=== PATIENT | male | born 1950 | race Caucasian/White ===

== ENCOUNTER 2020-09-19 13:36 | Inpatient (IN) | payer MEDICARE ==
[~2020-09-19] VITALS: Ht 198.1 cm; Wt 131.5 kg
[2020-09-19 18:30] VITALS: BP 127/91
[2020-09-19] MEDS ORDERED: LORATADINE 10 MG TABLET PO PRN (19:30)
[2020-09-19] MEDS ORDERED: OxyCODONE HCL/ACETAMINOPHEN 5-325 MG TABLET PO PRN (19:30)
[2020-09-19 20:37] VITALS: BP 132/83
[2020-09-19] MEDS: HEPARIN SODIUM,PORCINE 5,000 UNITS/ML VIAL SQ SCH (20:38)
[2020-09-19] MEDS: LevETIRAcetam 500 MG TABLET PO SCH (20:39)
[2020-09-19] MEDS: SENNA 187 MG TABLET PO SCH (20:39)
[2020-09-19] MEDS: DOCUSATE SODIUM 250 MG CAPSULE PO SCH (20:39)
[2020-09-19] MEDS: METOPROLOL TARTRATE 25 MG TABLET PO SCH (20:40)
[2020-09-19] MEDS: MELATONIN 5 MG TABLET PO SCH (20:53)
[2020-09-19] MEDS: -LIDODERM PATCH NOTE- MISC SCH (20:53)
[2020-09-20] VITALS: BP 126/81
[2020-09-20 06:29] LABS: BASOPHILS % (AUTO) 0.6 % (0.0-2.0); EOSINOPHILS % (AUTO) 4.4 % (1.0-6.0); HEMATOCRIT 26.6 % (41-53); LYMPHOCYTES # (AUTO) 1.4 K/uL (1.0-4.8); LYMPHOCYTES % (AUTO) 22.7 % (22.0-44.0); MEAN CORPUSCULAR HEMOGLOBIN 30.1 pg (26.0-34.0); MEAN CORPUSCULAR HGB CONC 33.6 G/dL (31.0-37.0); MEAN CORPUSCULAR VOLUME 90 fL (80-100); MONOCYTES # (AUTO) 0.6 K/uL (0.1-1.0); MONOCYTES % (AUTO) 9.7 % (2.0-9.0); NEUTROPHILS # (AUTO) 3.9 K/uL (1.8-7.7); NEUTROPHILS % (AUTO) 62.6 % (40.0-70.0); PLATELET COUNT (AUTO) 323 K/uL (150-450); RED BLOOD CELL COUNT(AUTO) 2.97 MIL/uL (4.50-5.90); RED CELL DISTRIBUTION WIDTH 15.4 % (11.5-14.5)
[2020-09-20 06:44] LABS: ALANINE AMINOTRANSFERASE 29 U/L (12-78); ALBUMIN 2.2 g/dL (3.4-5.0); ALKALINE PHOSPHATASE 127 U/L (46-116); ANION GAP 6 mmol/L (8-16); ASPARTATE AMINOTRANSFERASE 31 U/L (15-37); BILIRUBIN,TOTAL 0.3 mg/dL (0.1-1.0); CALCIUM, TOTAL 8.2 mg/dL (8.8-10.5); CARBON DIOXIDE 28 mmol/L (22-29); CHLORIDE 105 mmol/L (98-107); CREATININE 0.83 mg/dL (0.60-1.30); GLOMERULAR FILTR. RATE CALC > 60 mL/min (>60); GLUCOSE,RANDOM 94 mg/dL (70-110); POTASSIUM 3.7 mmol/L (3.5-5.1); SODIUM SERUM 139 mmol/L (136-145); TOTAL PROTEIN, SERUM 5.1 g/dL (6.4-8.2); UREA NITROGEN, BLOOD 12 mg/dL (7-18)
[2020-09-20] MEDS: METOPROLOL TARTRATE 25 MG TABLET PO SCH ×2 (08:12→20:05)
[2020-09-20] MEDS: HEPARIN SODIUM,PORCINE 5,000 UNITS/ML VIAL SQ SCH ×3 (08:12→20:05)
[2020-09-20] MEDS: DOCUSATE SODIUM 250 MG CAPSULE PO SCH ×2 (08:12→20:05)
[2020-09-20] MEDS: LevETIRAcetam 500 MG TABLET PO SCH ×2 (08:12→20:05)
[2020-09-20] MEDS: LIDOCAINE 5% TRANSDERMAL PATCH TD SCH (08:28)
[2020-09-20 08:32] VITALS: BP 108/75
[2020-09-20] MEDS: ACETAMINOPHEN 325 MG TABLET PO PRN (11:33)
[2020-09-20 16:00] VITALS: BP 125/78
[2020-09-20] MEDS: CALCIUM CARBONATE 500 MG CHEWABLE TABLET CHEW PRN (16:59)
[2020-09-20] MEDS: OxyCODONE HCL 5 MG IR TABLET PO PRN (17:01)
[2020-09-20] MEDS: MELATONIN 5 MG TABLET PO SCH (20:05)
[2020-09-20] MEDS: SENNA 187 MG TABLET PO SCH (20:05)
[2020-09-20 20:06] VITALS: BP 114/64
[2020-09-20] MEDS: -LIDODERM PATCH NOTE- MISC SCH (21:00)
[2020-09-21] VITALS: BP 104/65
[2020-09-21 07:38] VITALS: BP 109/64
[2020-09-21] MEDS: ACETAMINOPHEN 325 MG TABLET PO PRN (07:38)
[2020-09-21 08:00] VITALS: BP 109/64
[2020-09-21] MEDS ORDERED: MAGNESIUM HYDROXIDE SUSPENSION 30 ML UDCUP PO PRN (08:00)
[2020-09-21] MEDS: POLYETHYLENE GLYCOL 3350 17 GM PACKET PO SCH (08:31)
[2020-09-21] MEDS: LevETIRAcetam 500 MG TABLET PO SCH ×2 (08:32→19:43)
[2020-09-21] MEDS: DOCUSATE SODIUM 250 MG CAPSULE PO SCH ×2 (08:32→19:43)
[2020-09-21] MEDS: HEPARIN SODIUM,PORCINE 5,000 UNITS/ML VIAL SQ SCH ×3 (08:33→19:46)
[2020-09-21] MEDS: METOPROLOL TARTRATE 25 MG TABLET PO SCH ×2 (08:34→19:43)
[2020-09-21] MEDS: LIDOCAINE 5% TRANSDERMAL PATCH TD SCH (09:00)
[2020-09-21] MEDS: OxyCODONE HCL 5 MG IR TABLET PO PRN ×2 (16:03→23:38)
[2020-09-21 16:12] VITALS: BP 109/77
[2020-09-21] MEDS: -LIDODERM PATCH NOTE- MISC SCH (19:43)
[2020-09-21] MEDS: SENNA 187 MG TABLET PO SCH (19:43)
[2020-09-21] MEDS: MELATONIN 5 MG TABLET PO SCH (19:43)
[2020-09-21] MEDS: CALCIUM CARBONATE 500 MG CHEWABLE TABLET CHEW PRN (19:43)
[2020-09-21 23:38] VITALS: BP 113/65
[2020-09-22 07:05] VITALS: BP 112/64
[2020-09-22] MEDS: OxyCODONE HCL 5 MG IR TABLET PO PRN ×2 (07:10→17:28)
[2020-09-22] MEDS: LevETIRAcetam 500 MG TABLET PO SCH ×2 (07:44→21:04)
[2020-09-22] MEDS: DOCUSATE SODIUM 250 MG CAPSULE PO SCH ×2 (07:44→21:04)
[2020-09-22] MEDS: POLYETHYLENE GLYCOL 3350 17 GM PACKET PO SCH (07:44)
[2020-09-22] MEDS: METOPROLOL TARTRATE 25 MG TABLET PO SCH ×2 (07:45→21:04)
[2020-09-22] MEDS: HEPARIN SODIUM,PORCINE 5,000 UNITS/ML VIAL SQ SCH ×3 (07:45→21:04)
[2020-09-22 08:05] VITALS: BP 120/72
[2020-09-22] MEDS: LIDOCAINE 5% TRANSDERMAL PATCH TD SCH (09:00)
[2020-09-22] MEDS: CALCIUM CARBONATE 500 MG CHEWABLE TABLET CHEW PRN (14:45)
[2020-09-22 16:00] VITALS: BP 121/74
[2020-09-22 20:59] VITALS: BP 113/66
[2020-09-22] MEDS: -LIDODERM PATCH NOTE- MISC SCH (21:00)
[2020-09-22] MEDS: SENNA 187 MG TABLET PO SCH (21:04)
[2020-09-22] MEDS: MELATONIN 5 MG TABLET PO SCH (21:04)
[2020-09-23 01:19] VITALS: BP 103/49
[2020-09-23] MEDS: OxyCODONE HCL 5 MG IR TABLET PO PRN (07:36)
[2020-09-23] MEDS: DOCUSATE SODIUM 250 MG CAPSULE PO SCH ×2 (08:28→20:36)
[2020-09-23] MEDS: LevETIRAcetam 500 MG TABLET PO SCH ×2 (08:29→20:37)
[2020-09-23] MEDS: PSYLLIUM SEED ORANGE SF 5.8 GM/PACKET PO SCH (08:29)
[2020-09-23] MEDS: HEPARIN SODIUM,PORCINE 5,000 UNITS/ML VIAL SQ SCH ×3 (08:29→20:37)
[2020-09-23] MEDS: POLYETHYLENE GLYCOL 3350 17 GM PACKET PO SCH (08:29)
[2020-09-23] MEDS: MULTIVITAMINS WITH MINERALS, THERAPEUTIC TABLET PO SCH (08:29)
[2020-09-23] MEDS: LIDOCAINE 5% TRANSDERMAL PATCH TD SCH (08:30)
[2020-09-23 08:35] VITALS: BP 108/57
[2020-09-23] MEDS: METOPROLOL TARTRATE 25 MG TABLET PO SCH ×2 (09:00→20:39)
[2020-09-23] MEDS: ACETAMINOPHEN 325 MG TABLET PO PRN (11:45)
[2020-09-23 16:00] VITALS: BP 116/66
[2020-09-23 20:09] VITALS: BP 125/59
[2020-09-23] MEDS: MELATONIN 5 MG TABLET PO SCH (20:37)
[2020-09-23] MEDS: SENNA 187 MG TABLET PO SCH (20:37)
[2020-09-24] VITALS: BP 116/67
[2020-09-24] MEDS: PSYLLIUM SEED ORANGE SF 5.8 GM/PACKET PO SCH (07:59)
[2020-09-24] MEDS: DOCUSATE SODIUM 250 MG CAPSULE PO SCH ×2 (07:59→20:13)
[2020-09-24] MEDS: POLYETHYLENE GLYCOL 3350 17 GM PACKET PO SCH (07:59)
[2020-09-24] MEDS: METOPROLOL TARTRATE 25 MG TABLET PO SCH ×2 (08:00→20:14)
[2020-09-24] MEDS: HEPARIN SODIUM,PORCINE 5,000 UNITS/ML VIAL SQ SCH ×3 (08:00→20:13)
[2020-09-24] MEDS: MULTIVITAMINS WITH MINERALS, THERAPEUTIC TABLET PO SCH (08:00)
[2020-09-24] MEDS: LevETIRAcetam 500 MG TABLET PO SCH ×2 (08:01→20:14)
[2020-09-24 12:00] VITALS: BP 105/64
[2020-09-24 17:00] VITALS: BP 111/59
[2020-09-24 20:05] VITALS: BP 129/67
[2020-09-24] MEDS: MELATONIN 5 MG TABLET PO SCH (20:13)
[2020-09-24] MEDS: SENNA 187 MG TABLET PO SCH (20:14)
[2020-09-25 00:30] VITALS: BP 106/58
[2020-09-25 08:00] VITALS: BP 123/74
[2020-09-25] MEDS: HEPARIN SODIUM,PORCINE 5,000 UNITS/ML VIAL SQ SCH ×3 (08:03→20:09)
[2020-09-25] MEDS: DOCUSATE SODIUM 250 MG CAPSULE PO SCH ×2 (08:03→20:09)
[2020-09-25] MEDS: MULTIVITAMINS WITH MINERALS, THERAPEUTIC TABLET PO SCH (08:03)
[2020-09-25] MEDS: METOPROLOL TARTRATE 25 MG TABLET PO SCH ×2 (08:04→20:10)
[2020-09-25] MEDS: PSYLLIUM SEED ORANGE SF 5.8 GM/PACKET PO SCH (08:04)
[2020-09-25] MEDS: POLYETHYLENE GLYCOL 3350 17 GM PACKET PO SCH (08:04)
[2020-09-25] MEDS: LevETIRAcetam 500 MG TABLET PO SCH ×2 (08:04→20:09)
[2020-09-25 16:00] VITALS: BP 104/72
[2020-09-25] MEDS: ACETAMINOPHEN 325 MG TABLET PO PRN (17:42)
[2020-09-25] MEDS: MELATONIN 5 MG TABLET PO SCH (20:09)
[2020-09-25 20:10] VITALS: BP 102/70
[2020-09-25] MEDS: SENNA 187 MG TABLET PO SCH (20:10)
[2020-09-26] VITALS: BP 105/64
[2020-09-26] MEDS: POLYETHYLENE GLYCOL 3350 17 GM PACKET PO SCH (08:01)
[2020-09-26] MEDS: PSYLLIUM SEED ORANGE SF 5.8 GM/PACKET PO SCH (08:01)
[2020-09-26] MEDS: METOPROLOL TARTRATE 25 MG TABLET PO SCH ×2 (08:02→20:12)
[2020-09-26] MEDS: HEPARIN SODIUM,PORCINE 5,000 UNITS/ML VIAL SQ SCH ×3 (08:02→20:13)
[2020-09-26] MEDS: DOCUSATE SODIUM 250 MG CAPSULE PO SCH ×2 (08:02→20:12)
[2020-09-26] MEDS: LevETIRAcetam 500 MG TABLET PO SCH ×2 (08:03→20:12)
[2020-09-26] MEDS: MULTIVITAMINS WITH MINERALS, THERAPEUTIC TABLET PO SCH (08:03)
[2020-09-26 09:18] VITALS: BP 115/68
[2020-09-26] MEDS: ACETAMINOPHEN 325 MG TABLET PO PRN (11:30)
[2020-09-26 16:12] VITALS: BP 107/76
[2020-09-26 20:11] VITALS: BP 101/62
[2020-09-26] MEDS: MELATONIN 5 MG TABLET PO SCH (20:12)
[2020-09-26] MEDS: SENNA 187 MG TABLET PO SCH (20:12)
[2020-09-27 00:24] VITALS: BP 98/63
[2020-09-27] MEDS: PSYLLIUM SEED ORANGE SF 5.8 GM/PACKET PO SCH (08:04)
[2020-09-27] MEDS: POLYETHYLENE GLYCOL 3350 17 GM PACKET PO SCH (08:04)
[2020-09-27] MEDS: LevETIRAcetam 500 MG TABLET PO SCH ×2 (08:05→20:48)
[2020-09-27] MEDS: DOCUSATE SODIUM 250 MG CAPSULE PO SCH ×2 (08:05→20:48)
[2020-09-27] MEDS: HEPARIN SODIUM,PORCINE 5,000 UNITS/ML VIAL SQ SCH ×3 (08:06→20:48)
[2020-09-27] MEDS: METOPROLOL TARTRATE 25 MG TABLET PO SCH ×2 (08:06→20:48)
[2020-09-27] MEDS: MULTIVITAMINS WITH MINERALS, THERAPEUTIC TABLET PO SCH (08:07)
[2020-09-27 08:29] VITALS: BP 103/65
[2020-09-27] MEDS: ACETAMINOPHEN 325 MG TABLET PO PRN (09:36)
[2020-09-27 16:51] VITALS: BP 137/87
[2020-09-27] MEDS: SENNA 187 MG TABLET PO SCH (20:48)
[2020-09-27] MEDS: MELATONIN 5 MG TABLET PO SCH (20:48)
[2020-09-27 21:00] VITALS: BP 114/59
[2020-09-28] VITALS: BP 101/62
[2020-09-28] MEDS: ACETAMINOPHEN 325 MG TABLET PO PRN ×2 (01:13→19:58)
[2020-09-28 07:25] LABS: EOSINOPHILS % (AUTO) 6.3 % (1.0-6.0); HEMATOCRIT 31.2 % (41-53); HEMOGLOBIN 10.2 g/dL (13.5-17.5); LYMPHOCYTES % (AUTO) 29.4 % (22.0-44.0); MEAN CORPUSCULAR HEMOGLOBIN 29.8 pg (26.0-34.0); MEAN CORPUSCULAR HGB CONC 32.7 G/dL (31.0-37.0); MEAN CORPUSCULAR VOLUME 91 fL (80-100); MONOCYTES # (AUTO) 0.8 K/uL (0.1-1.0); MONOCYTES % (AUTO) 11.9 % (2.0-9.0); NEUTROPHILS # (AUTO) 3.5 K/uL (1.8-7.7); NEUTROPHILS % (AUTO) 51.4 % (40.0-70.0); PLATELET COUNT (AUTO) 326 K/uL (150-450); RED BLOOD CELL COUNT(AUTO) 3.43 MIL/uL (4.50-5.90)
[2020-09-28 07:40] LABS: ALBUMIN 2.9 g/dL (3.4-5.0); BILIRUBIN,TOTAL 0.4 mg/dL (0.1-1.0); CALCIUM, TOTAL 8.8 mg/dL (8.8-10.5); CREATININE 1.22 mg/dL (0.60-1.30); POTASSIUM 4.2 mmol/L (3.5-5.1); TOTAL PROTEIN, SERUM 6.3 g/dL (6.4-8.2)
[2020-09-28 08:04] VITALS: BP 113/72
[2020-09-28] MEDS: POLYETHYLENE GLYCOL 3350 17 GM PACKET PO SCH (08:33)
[2020-09-28] MEDS: PSYLLIUM SEED ORANGE SF 5.8 GM/PACKET PO SCH (08:33)
[2020-09-28] MEDS: LevETIRAcetam 500 MG TABLET PO SCH ×2 (08:34→19:59)
[2020-09-28] MEDS: MULTIVITAMINS WITH MINERALS, THERAPEUTIC TABLET PO SCH (08:34)
[2020-09-28] MEDS: DOCUSATE SODIUM 250 MG CAPSULE PO SCH ×2 (08:34→19:58)
[2020-09-28] MEDS: METOPROLOL TARTRATE 25 MG TABLET PO SCH ×2 (08:35→19:59)
[2020-09-28] MEDS: HEPARIN SODIUM,PORCINE 5,000 UNITS/ML VIAL SQ SCH ×3 (08:35→19:59)
[2020-09-28] MEDS: CALCIUM CARBONATE 500 MG CHEWABLE TABLET CHEW PRN (10:21)
[2020-09-28] MEDS: OMEPRAZOLE 20 MG CAPSULE PO SCH ×2 (15:34→19:59)
[2020-09-28 15:42] VITALS: BP 105/87
[2020-09-28 19:57] VITALS: BP 122/67
[2020-09-28] MEDS: SENNA 187 MG TABLET PO SCH (19:58)
[2020-09-28] MEDS: MELATONIN 5 MG TABLET PO SCH (19:59)
[2020-09-29] VITALS: BP 85/59
[2020-09-29 03:00] VITALS: BP 90/51
[2020-09-29 06:00] VITALS: BP 115/72
[2020-09-29 08:05] VITALS: BP 104/73
[2020-09-29] MEDS: HEPARIN SODIUM,PORCINE 5,000 UNITS/ML VIAL SQ SCH ×3 (08:14→20:31)
[2020-09-29] MEDS: PSYLLIUM SEED ORANGE SF 5.8 GM/PACKET PO SCH (08:17)
[2020-09-29] MEDS: POLYETHYLENE GLYCOL 3350 17 GM PACKET PO SCH (08:18)
[2020-09-29] MEDS: DOCUSATE SODIUM 250 MG CAPSULE PO SCH ×2 (08:18→20:32)
[2020-09-29] MEDS: METOPROLOL TARTRATE 25 MG TABLET PO SCH ×2 (08:18→20:32)
[2020-09-29] MEDS: MULTIVITAMINS WITH MINERALS, THERAPEUTIC TABLET PO SCH (08:18)
[2020-09-29] MEDS: OMEPRAZOLE 20 MG CAPSULE PO SCH ×2 (08:18→20:32)
[2020-09-29] MEDS: LevETIRAcetam 500 MG TABLET PO SCH ×2 (08:19→20:31)
[2020-09-29 16:25] VITALS: BP 113/70
[2020-09-29] MEDS: SENNA 187 MG TABLET PO SCH (20:32)
[2020-09-29] MEDS: MELATONIN 5 MG TABLET PO SCH (20:38)
[2020-09-29] MEDS: ACETAMINOPHEN 325 MG TABLET PO PRN (20:48)
[2020-09-30 01:18] VITALS: BP 94/61
[2020-09-30 08:01] VITALS: BP 108/72
[2020-09-30] MEDS: MULTIVITAMINS WITH MINERALS, THERAPEUTIC TABLET PO SCH (09:41)
[2020-09-30] MEDS: PSYLLIUM SEED ORANGE SF 5.8 GM/PACKET PO SCH (09:41)
[2020-09-30] MEDS: POLYETHYLENE GLYCOL 3350 17 GM PACKET PO SCH (09:41)
[2020-09-30] MEDS: OMEPRAZOLE 20 MG CAPSULE PO SCH ×2 (09:41→20:20)
[2020-09-30] MEDS: DOCUSATE SODIUM 250 MG CAPSULE PO SCH ×2 (09:41→20:19)
[2020-09-30] MEDS: METOPROLOL TARTRATE 25 MG TABLET PO SCH ×2 (09:42→20:20)
[2020-09-30] MEDS: HEPARIN SODIUM,PORCINE 5,000 UNITS/ML VIAL SQ SCH ×3 (09:42→20:20)
[2020-09-30] MEDS: LevETIRAcetam 500 MG TABLET PO SCH ×2 (09:42→20:19)
[2020-09-30] MEDS: ACETAMINOPHEN 325 MG TABLET PO PRN (09:58)
[2020-09-30 16:10] VITALS: BP 96/74
[2020-09-30] MEDS: SENNA 187 MG TABLET PO SCH (20:19)
[2020-09-30] MEDS: MELATONIN 5 MG TABLET PO SCH (20:19)
[2020-09-30] MEDS ORDERED: DOCU-350 PO (21:00)
[2020-09-30] MEDS ORDERED: OMEP20 PO (21:00)
[2020-09-30] MEDS ORDERED: METO25 PO (21:00)
[2020-09-30] MEDS ORDERED: MELA5TAB3 PO (21:00)
[2020-09-30] MEDS ORDERED: PSYL1PAC PO (21:00)
[2020-09-30] MEDS ORDERED: POLY17PO47 PO (21:00)
[2020-09-30] MEDS ORDERED: LEVE500T53 PO (21:00)
[2020-09-30] MEDS ORDERED: MULT-248 PO (21:00)
[2020-10-01] VITALS: BP 104/67
[2020-10-01 08:08] VITALS: BP 116/80
[2020-10-01] MEDS: POLYETHYLENE GLYCOL 3350 17 GM PACKET PO SCH (08:22)
[2020-10-01] MEDS: PSYLLIUM SEED ORANGE SF 5.8 GM/PACKET PO SCH (08:22)
[2020-10-01] MEDS: LevETIRAcetam 500 MG TABLET PO SCH ×2 (08:23→20:24)
[2020-10-01] MEDS: DOCUSATE SODIUM 250 MG CAPSULE PO SCH ×2 (08:23→20:25)
[2020-10-01] MEDS: MULTIVITAMINS WITH MINERALS, THERAPEUTIC TABLET PO SCH (08:23)
[2020-10-01] MEDS: OMEPRAZOLE 20 MG CAPSULE PO SCH ×2 (08:23→20:25)
[2020-10-01] MEDS: HEPARIN SODIUM,PORCINE 5,000 UNITS/ML VIAL SQ SCH ×3 (08:24→20:25)
[2020-10-01] MEDS: METOPROLOL TARTRATE 25 MG TABLET PO SCH ×2 (08:24→20:25)
[2020-10-01 16:01] VITALS: BP 110/67
[2020-10-01 20:21] VITALS: BP 105/68
[2020-10-01] MEDS: MELATONIN 5 MG TABLET PO SCH (20:24)
[2020-10-01] MEDS: SENNA 187 MG TABLET PO SCH (20:25)
[2020-10-02 00:41] VITALS: BP 101/47
[2020-10-02 07:23] VITALS: BP 115/72
[2020-10-02] MEDS: MULTIVITAMINS WITH MINERALS, THERAPEUTIC TABLET PO SCH (08:32)
[2020-10-02] MEDS: POLYETHYLENE GLYCOL 3350 17 GM PACKET PO SCH (08:32)
[2020-10-02] MEDS: PSYLLIUM SEED ORANGE SF 5.8 GM/PACKET PO SCH (08:32)
[2020-10-02] MEDS: METOPROLOL TARTRATE 25 MG TABLET PO SCH (08:33)
[2020-10-02] MEDS: LevETIRAcetam 500 MG TABLET PO SCH (08:33)
[2020-10-02] MEDS: OMEPRAZOLE 20 MG CAPSULE PO SCH (08:33)
[2020-10-02] MEDS: HEPARIN SODIUM,PORCINE 5,000 UNITS/ML VIAL SQ SCH (08:33)
[2020-10-02] MEDS: DOCUSATE SODIUM 250 MG CAPSULE PO SCH (08:33)
== END 2020-10-02 10:53 | disposition home or self-care (01) | DRG 87 ==
LOC: 2WR 18:30
PROVIDERS: ADMIT Physical Medicine & Rehabilitation; ATTEND Physical Medicine & Rehabilitation
DX: S06.5X0A Traumatic subdural hemorrhage without loss of consciousness, initial encounter (principal); R56.9 Unspecified convulsions; I10 Essential (primary) hypertension; G47.00 Insomnia, unspecified; K59.00 Constipation, unspecified; I48.91 Unspecified atrial fibrillation; R53.81 Other malaise; E66.9 Obesity, unspecified
CPT/HCPCS: 71045; 71250; 80053; 85025; 87081; 92507; 92523; 93970; 97110; 97116; 97150; 97162; 97166; 97530; 97535; 99366; A9575; J1644; 36415-L1; 36415-TC